=== PATIENT | female | born 1960 | race Caucasian/White ===

== ENCOUNTER 2016-07-24 11:08 | Emergency (ER) | payer OTHER ==
--- NOTE | ~2016-07-24 | CR286 ---
[facility] A Service of [facility] & [facility] RADIOLOGY TEXT RESULTS PATIENT: BALDEV BRIDGES LOCATION: [place] : 60 UNIT #: [id number] AGE: [address]: Delmis Fletcher APRN SEX: F ORDER DR: [id number] [facility] [address] [facility] [place], [place] [address] [id number] MR#: [id number] Acc #: [id number] NAME: BALDEV BRIDGES : 1960 SEX: F STUDY DATE/TIME: 07/24/2016 11:34 UNIT: [facility] ROOM: STUDY DESCRIPTION: CR Wrist W Navicular Min 3 Rt Attending Physician: Delmis Fletcher A.P.R.N. Ordering Physician: Delmis Fletcher A.P.R.N. Primary Care Physician: No Primary Care Physician MEDICAL IMAGING REPORT This report is preliminary unless electronic signature is present EXAM Right wrist with navicular view, 07/24/2016, 1134 hours. CLINICAL HISTORY Patient had table dropped on right wrist yesterday. Wrist pain. COMPARISON None FINDINGS AP, lateral, and oblique views and an ulnarly deviated AP view were performed. The bone density is normal. The distal radius and ulna are normal. There is no carpal bone fracture. Specifically, the scaphoid bone is intact. IMPRESSION Negative right wrist. Dictated by... Sunita Saravia M.D. THIS IS AN ELECTRONICALLY VERIFIED REPORT Sunita Saravia M.D. at 07/24/2016 7:31 PM MAGALIE/boby TD: 07/24/2016 13:46 JOB #: [id number] MEDICAL IMAGING REPORT Page 1 of 1 COPY
[~2016-07-24 11:08] MED LIST: ABILIFY5 MG PO; ACETAMINOPHEN500 M2 PO; DOC-Q-LACE100 MG PO; ENBREL50 MG/ML PO; GABAPENTIN300 M2 PO; HYDROCHLOROTHIA25 MG PO; LAMOTRIGINE200 MG PO; METHOTREXATE2.5 MG PO; MINIPRESS PO; SIMVASTATIN40 MG PO; TEGRETOL PO; TRAMADOL HCL50 M1 PO
== END 2016-07-24 12:35 | disposition home or self-care (01) ==
LOC: CED 11:08 → CFTX 11:08
DX: S60.211A Contusion of right wrist, initial encounter (principal); I10 Essential (primary) hypertension; F31.9 Bipolar disorder, unspecified; W22.8XXA Striking against or struck by other objects, initial encounter; Y92.009 Unspecified place in unspecified non-institutional (private) residence as the place of occurrence of the external cause
CPT/HCPCS: 29125; 73110; 99283